=== PATIENT | female | born 1980 | race Caucasian/White ===

== ENCOUNTER 2017-03-03 00:54 | Emergency (ER) | payer OTHER ==
[~2017-03-03] VITALS: Ht 167.6 cm; Wt 56.7 kg
[~2017-03-03 00:54] MED LIST: ACET500; ACETAMINOPHEN500 MG PO; ALBU90OI INH; AMOX500 PO; AZIT200SU PO; AZIT500 PO; Augmentin600 MG/5 M PO; Bactrim Ds Tab1 EACH PO; Bentyl20 MG PO; CALGLU500; CEPH500; CEPH500 PO; CETI10 PO; CLIN150 PO; CODACE30 PO; CYCL10 PO; DIPH50; DOXY100 PO; EPIN.3I; EPIN.3I IM; FLUT110OIA IH; FOLI1; Flomax0.4 MG PO; GABA300T24; GABA400 PO; HYDACE10B PO; HYDACE5; HYDACE5 PO; Hydrocodone-Ap1 EA23 PO; IBUP600 PO; IBUP800 PO; KETO10 PO; LORA.5 PO; LORA2 PO; MEDR10 PO; MULVITA; MULVITMINE PO; Mucinex600 MG PO; OMEP40CA12 PO; ONDA4ODT MM; OSEL75CA PO; OXYACE5T PO; PANT20; PENVK500 PO; PROC10 PO; PROM12.5S; PROM25; PROM25 PO; PSETRI PO; RXOXYACE PO; RXSULTRIDS PO; SERT25; SULTRIDS PO; Ultram50 MG PO; VIT B6; Zofran Odt4 MG SL; Zofran4 MG PO
[2017-03-03 01:55] LABS: Source, Urine Clean Catch
[2017-03-03 01:57] LABS: Bilirubin, Urine Neg (Neg); Blood, Urine 5+ (Neg); Glucose Qualitative, Urine Neg (Neg); Ketones, Urine Neg (Neg); Leukocyte Esterase, Urine 3+ (Neg); Nitrite, Urine Neg (Neg); Protein, Urine 3+ (Neg); Urobilinogen, Urine NORM (Normal)
[2017-03-03 02:01] LABS: Appearance, Urine Cloudy (Clear); Color, Urine Yellow (P-Yellow)
[2017-03-03 02:05] LABS: Bacteria Mod /hpf; Red Blood Cells, Urine 25-50 /hpf (0-2); Squamous Epithelial Cells Rare /hpf (Few); White Blood Cells, Urine TNTC /hpf (0-5)
[2017-03-03] MEDS ORDERED: ALPR.5 PO (02:50)
[2017-03-03 03:42] LABS: BASOPHILS ABSOLUTE AUTO 0.02 K/mm3 (0.00-0.23); BASOPHILS PERCENT AUTO 0 % (0-2); EOSINOPHILS ABSOLUTE AUTO 0.22 K/mm3 (0.00-0.68); EOSINOPHILS PERCENT AUTO 2 % (0-6); Hematocrit 38.7 % (33.0-51.0); IMMATURE GRAN ABSOLUTE AUTO 0.01 K/mm3 (0.00-0.10); IMMATURE GRAN PERCENT AUTO 0 % (0-1); LYMPHOCYTES ABSOLUTE AUTO 2.79 K/mm3 (0.84-5.20); LYMPHOCYTES PERCENT AUTO 24 % (21-46); MONOCYTES PERCENT AUTO 8 % (4-13); Mean Corpuscular HGB 29.3 pg (26.0-34.0); Mean Corpuscular HGB Conc 33.6 g/dL (31.5-36.5); Mean Corpuscular Volume 87 fL (80-100); Mean Platelet Volume 9.7 fL (9.1-12.4); NEUTROPHILS ABSOLUTE AUTO 7.48 K/mm3 (1.96-9.15); NEUTROPHILS PERCENT AUTO 66 % (41-73); Platelet Count 268 K/mm3 (150-400); RDW Coefficient Variation 12.5 % (11.7-14.2); RDW Standard Deviation 40.2 fL (35.1-46.3); Red Blood Cell Count 4.44 M/mm3 (3.80-5.20); White Blood Cell Count 11.42 K/mm3 (4.00-11.30)
[2017-03-03 03:59] LABS: Alanine Aminotransfer (ALT/SGP 22 U/L (12-78); Albumin, Blood 3.3 g/dL (3.4-5.0); Albumin/Globulin Ratio 0.9 (0.8-1.8); Alk Phos 36 U/L (50-136); Anion Gap 6 mmol/L (6-16); Aspartate Aminotrans (AST/SGOT 13 U/L (12-37); Bilirubin, Total 0.2 mg/dL (0.1-1.0); Blood Urea Nitrogen 14 mg/dL (8-24); Bun/Creatinine Ratio 16.9 (12.0-20.0); CO2, Blood 27 mmol/L (21-32); Calcium, Blood 8.3 mg/dL (8.5-10.1); Chloride, Blood 106 mmol/L (98-108); Creatinine, Blood 0.83 mg/dL (0.40-1.00); Globulin, Blood 3.6 g/dL (2.2-4.0); Glomerular Filtration Rate >60 (60-); Glucose, Blood 85 mg/dL (70-99); Sodium, Blood 139 mmol/L (136-145); Total Protein, Blood 6.9 g/dL (6.4-8.2)
== END 2017-03-03 13:40 | disposition home or self-care (01) ==
LOC: ER 00:54
PROVIDERS: Physician Assistant
DX: N13.2 Hydronephrosis with renal and ureteral calculous obstruction (principal); N12 Tubulo-interstitial nephritis, not specified as acute or chronic; I48.91 Unspecified atrial fibrillation; Z88.8 Allergy status to other drugs, medicaments and biological substances; Z88.1 Allergy status to other antibiotic agents; Z79.899 Other long term (current) drug therapy; Z87.442 Personal history of urinary calculi; Z98.51 Tubal ligation status; Z87.891 Personal history of nicotine dependence
CPT/HCPCS: 36415; 74000; 74176; 76770; 80053; 81001; 81025; 83690; 85025; 87077; 87086; 87186; 96361; 96365; 96366; 96375; 96376; 99285; J0696; J1170; J1885; J2405; J2550; J7030

== ENCOUNTER → 2017-05-02 | Outpatient (CLI) | payer OTHER ==
[~2017-05-02] MED LIST changes: +ALPR.5 PO
[2017-05-02 17:15] LABS: Source, Urine Clean Catch
[2017-05-02 17:59] LABS: Appearance, Urine Clear (Clear); Bilirubin, Urine Neg (Neg); Blood, Urine 1+ (Neg); Color, Urine Yellow (P-Yellow); Glucose Qualitative, Urine Neg (Normal); Ketones, Urine Neg (Neg); Leukocyte Esterase, Urine Neg (Neg); Nitrite, Urine Neg (Neg); Protein, Urine Neg (Neg); Urobilinogen, Urine NORM (Normal)
[2017-05-02 18:00] LABS: Bacteria Not Seen /hpf; Mucus Light (0-Heavy); Red Blood Cells, Urine 0-2 /hpf (0-2); Squamous Epithelial Cells Few /hpf (Few); White Blood Cells, Urine 0-2 /hpf (0-5)
== END ==
LOC: LAB EV 17:14 → LAB SHORT 17:14
PROVIDERS: Family Medicine
DX: N39.0 Urinary tract infection, site not specified (principal)
CPT/HCPCS: 81001

== ENCOUNTER → 2020-01-20 | Outpatient (CLI) | payer OTHER ==
[2020-01-21 16:20] LABS: CORONAVIRUS (COVID19) CSH-NRL Negative (Negative)
== END | disposition home or self-care (01) ==
LOC: LAB EV 09:18 → LAB SHORT 09:18
PROVIDERS: Physician Assistant
DX: J06.9 Acute upper respiratory infection, unspecified (principal); Z20.828 Contact with and (suspected) exposure to other viral communicable diseases
CPT/HCPCS: U0003

== ENCOUNTER 2021-08-01 14:17 | Emergency (ER) | payer OTHER ==
[~2021-08-01] VITALS: Ht 167.6 cm; Wt 70.3 kg
[~2021-08-01 14:17] MED LIST changes: +GABA100; +HYDROCODONE BIT
[2021-08-01 15:13] LABS: BASOPHILS ABSOLUTE AUTO 0.04 K/mm3 (0.00-0.23); BASOPHILS PERCENT AUTO 0 % (0-2); EOSINOPHILS ABSOLUTE AUTO 0.19 K/mm3 (0.00-0.68); EOSINOPHILS PERCENT AUTO 2 % (0-6); Hematocrit 45.2 % (33.0-51.0); Hemoglobin 15.1 g/dL (11.5-16.0); IMMATURE GRAN ABSOLUTE AUTO 0.05 K/mm3 (0.00-0.10); IMMATURE GRAN PERCENT AUTO 0 % (0-1); LYMPHOCYTES ABSOLUTE AUTO 5.12 K/mm3 (0.84-5.20); LYMPHOCYTES PERCENT AUTO 46 % (21-46); MONOCYTES ABSOLUTE AUTO 0.69 K/mm3 (0.16-1.47); MONOCYTES PERCENT AUTO 6 % (4-13); Mean Corpuscular HGB 30.8 pg (26.0-34.0); Mean Corpuscular HGB Conc 33.4 g/dL (31.5-36.5); Mean Corpuscular Volume 92 fL (80-100); Mean Platelet Volume 10.4 fL (9.1-12.4); NEUTROPHILS ABSOLUTE AUTO 5.11 K/mm3 (1.96-9.15); NEUTROPHILS PERCENT AUTO 46 % (41-73); Platelet Count 358 K/mm3 (150-400); RDW Coefficient Variation 12.4 % (11.7-14.2); RDW Standard Deviation 41.7 fL (35.1-46.3); Red Blood Cell Count 4.91 M/mm3 (3.80-5.20)
[2021-08-01 15:21] LABS: Albumin, Blood 4.2 g/dL (3.4-5.0); Albumin/Globulin Ratio 1.1 (0.8-1.8); Bilirubin, Total 0.2 mg/dL (0.1-1.0); Bun/Creatinine Ratio 15.8 (12.0-20.0); Creatinine, Blood 0.7 mg/dL (0.40-1.00); Globulin, Blood 3.7 g/dL (2.2-4.0); Magnesium, Blood 2.4 mg/dL (1.6-2.4); Potassium, Blood 4.1 mmol/L (3.5-5.5); Total Protein, Blood 7.9 g/dL (6.4-8.2)
[2021-08-01 16:04] LABS: Source, Urine Clean Catch
[2021-08-01 16:16] LABS: Appearance, Urine Clear (Clear); Bilirubin, Urine Neg (Neg); Blood, Urine 2+ (Neg); Color, Urine Yellow (P-Yellow); Glucose Qualitative, Urine Neg (Neg); Ketones, Urine Neg (Neg); Leukocyte Esterase, Urine Neg (Neg); Nitrite, Urine Neg (Neg); Protein, Urine Neg (Neg); Urobilinogen, Urine NORM (Normal)
[2021-08-01 16:41] LABS: Bacteria Few /hpf; Squamous Epithelial Cells Few /hpf (Few); White Blood Cells, Urine 0-2 /hpf (0-5)
[2021-08-01] MEDS ORDERED: ONDA4ODT MM (20:07)
[2021-08-01] MEDS ORDERED: HYDCOR10 PO (20:07)
== END 2021-08-01 21:09 | disposition home or self-care (01) ==
LOC: ER 14:17
PROVIDERS: Physician Assistant
DX: E27.40 Unspecified adrenocortical insufficiency (principal); Z88.1 Allergy status to other antibiotic agents; Z91.018 Allergy to other foods; F17.200 Nicotine dependence, unspecified, uncomplicated
CPT/HCPCS: 36415; 80053; 81001; 81025; 83735; 85025; A9270; J2405; J7030

== ENCOUNTER → 2022-02-10 | Outpatient (CLI) | payer OTHER ==
[~2022-02-10] MED LIST changes: +B-12 COMPL1000 MCG/2 IM; +FOLI1 PO; -GABA100; +GABA100 PO; +HYDCOR10 PO; +MAGNESIUM OXID500 MG PO; +Norco 10-325 T1 EACH PO; +SUMA25 PO; +THERA-D2000 UNIT PO
[2022-02-10 13:00] LABS: Adenovirus F 40/41 Not Detected (NOT DETECT); Astrovirus Not Detected (NOT DETECT); Campylobacter Sp Not Detected (NOT DETECT); Cryptosporidium Not Detected (NOT DETECT); Cyclospora Cayetanensis Not Detected (NOT DETECT); E. Coli O157 Not Detected (NOT DETECT); Entamoeba Histolytica Not Detected (NOT DETECT); Enteroaggregative E. coli-EAEC Not Detected (NOT DETECT); Enteropathogenic E. coli-EPEC Not Detected (NOT DETECT); Enterotoxigenic E. coli-ETEC Not Detected (NOT DETECT); Giardia Lamblia Not Detected (NOT DETECT); Norovirus GI/GII Not Detected (NOT DETECT); Plesiomonas Shigelloides Not Detected (NOT DETECT); Rotavirus A Not Detected (NOT DETECT); Salmonella Sp Not Detected (NOT DETECT); Sapovirus Not Detected (NOT DETECT); Shiga Toxin-prod E. coli-STEC Not Detected (NOT DETECT); Shigella/Enteroin E. coli-EIEC Not Detected (NOT DETECT); Vibrio Cholerae Not Detected (NOT DETECT); Vibrio Sp Not Detected (NOT DETECT); Yersinia Enterocolitica Not Detected (NOT DETECT)
[2022-02-10 16:02] LABS: Source, Urine Voided
[2022-02-10 18:05] LABS: Bacteria Mod /hpf; Red Blood Cells, Urine 0-2 /hpf (0-2); Squamous Epithelial Cells Rare /hpf (Few); White Blood Cells, Urine 0-2 /hpf (0-5)
== END | disposition home or self-care (01) ==
LOC: LAB 09:48 → LAB SHORT 09:48
PROVIDERS: Physician Assistant
DX: K52.9 Noninfective gastroenteritis and colitis, unspecified (principal); R10.2 Pelvic and perineal pain
CPT/HCPCS: 81015; 83993; 87086; 87507

== ENCOUNTER 2022-04-20 02:08 | Day surgery (SDC) | payer OTHER ==
[2022-04-20] MEDS ORDERED: DELTASONE20 MG PO (07:44)
== END 2022-04-20 10:45 | disposition home or self-care (01) ==
LOC: ATC 02:08
DX: K50.10 Crohn's disease of large intestine without complications (principal); E27.40 Unspecified adrenocortical insufficiency
CPT/HCPCS: 96413; 96415; A9270; J2920; J7050; Q5103

== ENCOUNTER 2022-05-03 00:43 | Day surgery (SDC) | payer OTHER ==
[~2022-05-03] VITALS: Wt 74.8 kg
[~2022-05-03 00:43] MED LIST changes: +DELTASONE20 MG PO
== END 2022-05-03 10:25 | disposition home or self-care (01) ==
LOC: ATC 00:43
DX: K50.10 Crohn's disease of large intestine without complications (principal)
CPT/HCPCS: 96413; 96415; A9270; J7050; Q5103

== ENCOUNTER → 2022-05-22 | Outpatient (CLI) | payer OTHER | END | disposition home or self-care (01) | LOC: LAB 09:53 → LAB SHORT 09:53 | DX: N39.0 Urinary tract infection, site not specified (principal) | CPT/HCPCS: 87086 ==

== ENCOUNTER 2022-06-01 02:55 | Day surgery (SDC) | payer OTHER ==
[~2022-06-01] VITALS: Wt 75.2 kg
== END 2022-06-01 11:56 | disposition home or self-care (01) ==
LOC: ATC 02:55
DX: K50.10 Crohn's disease of large intestine without complications (principal)
CPT/HCPCS: 96413; 96415; A9270; J7050; Q5103

== ENCOUNTER 2022-06-19 00:59 | Day surgery (SDC) | payer OTHER | END 2022-06-19 11:23 | disposition home or self-care (01) | LOC: ATC 00:59 | DX: E27.3 Drug-induced adrenocortical insufficiency (principal); K50.90 Crohn's disease, unspecified, without complications; E04.2 Nontoxic multinodular goiter; D51.0 Vitamin B12 deficiency anemia due to intrinsic factor deficiency | CPT/HCPCS: 80400; 82533; J0834 ==

== ENCOUNTER 2022-09-21 01:02 | Day surgery (SDC) | payer OTHER ==
[2022-09-21 09:00] VITALS: BP 130/85
== END 2022-09-21 11:45 | disposition home or self-care (01) ==
LOC: ATC 01:02
DX: K50.10 Crohn's disease of large intestine without complications (principal); I48.0 Paroxysmal atrial fibrillation; Z88.1 Allergy status to other antibiotic agents; Z79.899 Other long term (current) drug therapy
CPT/HCPCS: 96413; 96415; A9270; J2920; J7050; Q5103

== ENCOUNTER → 2022-11-03 | Outpatient (CLI) | payer OTHER ==
[2022-11-03 11:59] LABS: C DIFFICILE DNA NEGATIVE (Negative)
== END ==
LOC: LAB SHORT 06:30 → LAB 06:30
PROVIDERS: Internal Medicine Gastroenterology
DX: K50.10 Crohn's disease of large intestine without complications (principal)
CPT/HCPCS: 87493

== ENCOUNTER 2022-11-16 01:12 | Day surgery (SDC) | payer OTHER ==
[2022-11-16 08:56] VITALS: BP 117/85
== END 2022-11-16 11:14 | disposition home or self-care (01) ==
LOC: ATC 01:12
DX: K50.10 Crohn's disease of large intestine without complications (principal); Z88.1 Allergy status to other antibiotic agents; E04.2 Nontoxic multinodular goiter; D51.0 Vitamin B12 deficiency anemia due to intrinsic factor deficiency
CPT/HCPCS: 96413; 96415; A9270; J7050; Q5103

== ENCOUNTER 2022-11-23 06:36 | Day surgery (SDC) | payer OTHER ==
[~2022-11-23] VITALS: Ht 167.6 cm; Wt 74.0 kg
[2022-11-23] VITALS (19 sets, daily range): BP systolic 103–124; BP diastolic 54–85
--- NOTE | 2022-11-23 06:50 | NUR ---
PT TO DAY SURGERY FOR LAPAROSCOPIC HYSTERECTOMY. PT HAS NOT EATEN SINCE 2099 AND HAD A COUPLE SIPS OF WATER WITH HER AM MEDICATION. PT CHART REVIEWED, PLAN OF CARE DISUSSED WITH PT.
[2022-11-23] MEDS ORDERED: INFLECTRA100 MG IV (07:22)
--- NOTE | 2022-11-23 12:49 | NUR ---
PT ARRIVED TO UNIT AT APROX 1240 FROM PACU. LAP SITES X'S 4 C/D/I. PT REPORTS PAINFUL AT REST, PREV MEDICATED WITH 2MG DILAUDID IVP. PT GIVEN HEATING PAD AND TOOK OWN GABAPENTIN. BETANCOURT PATENT DRAINING CLEAR/YELLOW URINE.
--- NOTE | 2022-11-23 19:30 | NUR ---
SHIFT SUMMARY PT POD 0 ALEXANDRE PEACOCK. LAP SITES X'S 4 C/D/I. BETANCOURT PATENT, DRAINING CLEAR YELLOW URINE. PAIN WELL MANAGED WITH PO PAIN MEDICATION. TOLERTING REGULAR DIET WITH NO N/V. IVF PER EMAR. PLAN TO DC HOME TOMORROW IF DISCHARGE CRITERIA MET
[2022-11-24 00:32] VITALS: BP 108/60
[2022-11-24 04:49] LABS: BASOPHILS ABSOLUTE AUTO 0.01 K/mm3 (0.00-0.23); BASOPHILS PERCENT AUTO 0 % (0-2); EOSINOPHILS ABSOLUTE AUTO 0.03 K/mm3 (0.00-0.68); EOSINOPHILS PERCENT AUTO 0 % (0-6); Hematocrit 34.3 % (33.0-51.0); Hemoglobin 11.7 g/dL (11.5-16.0); IMMATURE GRAN ABSOLUTE AUTO 0.03 K/mm3 (0.00-0.10); IMMATURE GRAN PERCENT AUTO 0 % (0-1); LYMPHOCYTES ABSOLUTE AUTO 2.79 K/mm3 (0.84-5.20); LYMPHOCYTES PERCENT AUTO 23 % (21-46); MONOCYTES ABSOLUTE AUTO 0.83 K/mm3 (0.16-1.47); MONOCYTES PERCENT AUTO 7 % (4-13); Mean Corpuscular HGB 31.2 pg (26.0-34.0); Mean Corpuscular HGB Conc 34.1 g/dL (31.5-36.5); Mean Corpuscular Volume 92 fL (80-100); Mean Platelet Volume 10.5 fL (9.1-12.4); NEUTROPHILS ABSOLUTE AUTO 8.36 K/mm3 (1.96-9.15); NEUTROPHILS PERCENT AUTO 69 % (41-73); Platelet Count 276 K/mm3 (150-400); RDW Coefficient Variation 11.9 % (11.7-14.2); Red Blood Cell Count 3.75 M/mm3 (3.80-5.20); White Blood Cell Count 12.05 K/mm3 (4.00-11.30)
[2022-11-24 04:52] VITALS: BP 110/62
--- NOTE | 2022-11-24 06:25 | NUR ---
SHIFT SUMMARY POD 1 ROBOTIC LAP HYSTER, 4 LAP SITES C/D/I. PT VERY PAINFUL T/O NIGHT, MEDICATED W/ DILAUDED X3 FOR 9/10 PAIN TO ABD. PT ALSO HX OF CROHNS DISEASE AND ANXIETY, AND TAKES LARGE AMOUNTS OF OXY AND GABAPENTIN AT HOME, PER PT REPORT. PT A&OX4, SPOUSE AT BEDSIDE. SERAFIN REMOVED THIS A.M. W/ LARGE AMT OF LIGHT YELLOW OUTPUT. PT AMBULATED LAST NIGHT IN HALLWAY TO WINDOW W FWW/ SBA AND TOLERATED WELL. NO ACUTE CHANGES THIS SHIFT. PT AWAITING DISCHARGE TO HOME TODAY. CALL LIGHT W/IN REACH.
[2022-11-24 07:14] VITALS: BP 110/70
--- NOTE | 2022-11-24 10:56 | NUR ---
DISCHARGE NOTE: PATIENT AND PATIENTS WERE EDUCATED ON DISCHARGE INSTRUCTIONS. BOTH VERBALIZED UNDERSTANDING AND HAD NO FURTHER QUESTIONS AT THIS TIME. HARD PERSCRIPTIONS WERE ALREADY FILLED. BOTH IVS WERE TAKEN OUT AND WNL. PATIENT IS TOLERATING PO INTAKE AND IS VOIDING. ABD HAS X4 LAP SITES WITH WOUND GLUE THAT ARE C/D/I. DENIES NAUSEA OR VOMITING. PATIENT IS DRESSED AND HAS PERSONAL ITEMS IN THE ROOM GATHERED. PATIENT REFUSED TO BE WHEELCHAIRED OUT AND IS WALKING OUT WITH TO HIS CAR TO BE TAKEN HOME.
== END 2022-11-24 10:40 | disposition home or self-care (01) ==
LOC: ORSCMMR 06:36 → ORD 08:00 → ORSCMMR 08:00 → SURS 12:29 → ORSCMMR 12:30 → SURS 11-24 10:40 → ORSCMMR 11-24 10:40
PROVIDERS: Obstetrics & Gynecology
PROC: 8E0W4CZ Robotic Assisted Procedure of Trunk Region, Percutaneous Endoscopic Approach (ICD-10-PCS; principal; 2022-11-23 08:00)
PROC: 0U5F4ZZ Destruction of Cul-de-sac, Percutaneous Endoscopic Approach (ICD-10-PCS; principal; 2022-11-23 08:00)
PROC: 0UT9FZZ Resection of Uterus, Via Natural or Artificial Opening With Percutaneous Endoscopic Assistance (ICD-10-PCS; principal; 2022-11-23 08:00)
PROC: 0UT7FZZ Resection of Bilateral Fallopian Tubes, Via Natural or Artificial Opening With Percutaneous Endoscopic Assistance (ICD-10-PCS; principal; 2022-11-23 08:00)
DX: N92.1 Excessive and frequent menstruation with irregular cycle (principal); N80.00 Endometriosis of the uterus, unspecified; O34.22 Maternal care for cesarean scar defect (isthmocele); D25.1 Intramural leiomyoma of uterus; N94.6 Dysmenorrhea, unspecified; N80.03 Adenomyosis of the uterus; N80.203 Endometriosis of bilateral fallopian tubes, unspecified depth
CPT/HCPCS: 36415; 85025; 86850; 86900; 86901; 88305; 88307; A9270; J0690; J1100; J1170; J1885; J2250; J2371; J2405; J2704; J3010; J7120

== ENCOUNTER 2023-01-11 05:09 | Day surgery (SDC) | payer OTHER ==
[~2023-01-11 05:09] MED LIST changes: +INFLECTRA100 MG IV
[2023-01-11 09:07] VITALS: BP 137/87
== END 2023-01-11 11:58 | disposition home or self-care (01) ==
LOC: ATC 05:09
DX: K50.10 Crohn's disease of large intestine without complications (principal)
CPT/HCPCS: 96413; 96415; A9270; J7050; Q5103

== ENCOUNTER 2023-01-13 11:57 | Emergency (ER) | payer OTHER ==
[~2023-01-13] VITALS: Ht 167.6 cm; Wt 70.3 kg
[2023-01-13 12:19] VITALS: BP 146/94
[2023-01-13 12:59] LABS: Source, Urine Clean Catch
[2023-01-13 13:04] LABS: Bilirubin, Urine Neg (Neg); Blood, Urine 2+ (Neg); Color, Urine Yellow (P-Yellow); Glucose Qualitative, Urine Neg (Neg); Ketones, Urine Neg (Neg); Leukocyte Esterase, Urine Neg (Neg); Nitrite, Urine Neg (Neg); Protein, Urine Neg (Neg); Urobilinogen, Urine NORM (Normal)
[2023-01-13 13:24] LABS: BASOPHILS ABSOLUTE AUTO 0.06 K/mm3 (0.00-0.23); BASOPHILS PERCENT AUTO 1 % (0-2); EOSINOPHILS ABSOLUTE AUTO 0.33 K/mm3 (0.00-0.68); EOSINOPHILS PERCENT AUTO 4 % (0-6); Hematocrit 45.2 % (33.0-51.0); IMMATURE GRAN ABSOLUTE AUTO 0.02 K/mm3 (0.00-0.10); IMMATURE GRAN PERCENT AUTO 0 % (0-1); LYMPHOCYTES ABSOLUTE AUTO 4.08 K/mm3 (0.84-5.20); LYMPHOCYTES PERCENT AUTO 47 % (21-46); MONOCYTES ABSOLUTE AUTO 0.58 K/mm3 (0.16-1.47); MONOCYTES PERCENT AUTO 7 % (4-13); Mean Corpuscular HGB 30.2 pg (26.0-34.0); Mean Corpuscular HGB Conc 33.2 g/dL (31.5-36.5); Mean Corpuscular Volume 91 fL (80-100); Mean Platelet Volume 10.4 fL (9.1-12.4); NEUTROPHILS ABSOLUTE AUTO 3.62 K/mm3 (1.96-9.15); NEUTROPHILS PERCENT AUTO 42 % (41-73); Platelet Count 356 K/mm3 (150-400); RDW Coefficient Variation 12.1 % (11.7-14.2); RDW Standard Deviation 40.6 fL (35.1-46.3); Red Blood Cell Count 4.97 M/mm3 (3.80-5.20); White Blood Cell Count 8.69 K/mm3 (4.00-11.30)
[2023-01-13 13:33] LABS: Albumin, Blood 4.3 g/dL (3.4-5.0); Albumin/Globulin Ratio 1.1 (0.8-1.8); Bilirubin, Total 0.3 mg/dL (0.1-1.0); Bun/Creatinine Ratio 9.1 (12.0-20.0); Calcium, Blood 9.6 mg/dL (8.5-10.1); Creatinine, Blood 0.88 mg/dL (0.40-1.00); Globulin, Blood 3.9 g/dL (2.2-4.0); Potassium, Blood 3.7 mmol/L (3.5-5.5); Total Protein, Blood 8.2 g/dL (6.4-8.2)
[2023-01-13 13:45] LABS: Appearance, Urine Hazy (Clear)
[2023-01-13 13:46] LABS: Amorphous Mod (0-Heavy); Bacteria Mod /hpf; Mucus Mod (0-Heavy); Squamous Epithelial Cells Few /hpf (Few); White Blood Cells, Urine 0-2 /hpf (0-5)
[2023-01-13 14:12] LABS: Influenza A, PCR NEGATIVE (NEGATIVE); Influenza B, PCR NEGATIVE (NEGATIVE); Resp Syncytial Virus, PCR NEGATIVE (NEGATIVE); SARS-Cov-2 (COVID-19) PCR, MMC NEGATIVE (NEGATIVE)
[2023-01-14 23:08] LABS: CHLAMYDIA TRACHOMATIS, NAA Negative (Negative)
== END 2023-01-13 14:14 | disposition home or self-care (01) ==
LOC: ER 11:57
PROVIDERS: Emergency Medicine
DX: B34.9 Viral infection, unspecified (principal); Z88.8 Allergy status to other drugs, medicaments and biological substances; Z88.1 Allergy status to other antibiotic agents; Z88.6 Allergy status to analgesic agent; Z79.899 Other long term (current) drug therapy; I48.91 Unspecified atrial fibrillation; G43.909 Migraine, unspecified, not intractable, without status migrainosus; Z87.891 Personal history of nicotine dependence
CPT/HCPCS: 0241U; 71046; 80053; 81001; 85025; 87491; 87591; 96361; 96374; 99283-25; J2405; J7030

== ENCOUNTER → 2023-02-07 | Outpatient (CLI) | payer OTHER ==
[2023-02-07 16:20] LABS: BASOPHILS ABSOLUTE AUTO 0.03 K/mm3 (0.00-0.23); BASOPHILS PERCENT AUTO 0 % (0-2); EOSINOPHILS ABSOLUTE AUTO 0.01 K/mm3 (0.00-0.68); EOSINOPHILS PERCENT AUTO 0 % (0-6); Hemoglobin 15.9 g/dL (11.5-16.0); IMMATURE GRAN ABSOLUTE AUTO 0.12 K/mm3 (0.00-0.10); IMMATURE GRAN PERCENT AUTO 1 % (0-1); LYMPHOCYTES ABSOLUTE AUTO 3.61 K/mm3 (0.84-5.20); LYMPHOCYTES PERCENT AUTO 23 % (21-46); MONOCYTES PERCENT AUTO 5 % (4-13); Mean Corpuscular HGB 31.2 pg (26.0-34.0); Mean Corpuscular HGB Conc 34.6 g/dL (31.5-36.5); Mean Corpuscular Volume 90 fL (80-100); Mean Platelet Volume 10.1 fL (9.1-12.4); NEUTROPHILS ABSOLUTE AUTO 11.17 K/mm3 (1.96-9.15); NEUTROPHILS PERCENT AUTO 71 % (41-73); Platelet Count 354 K/mm3 (150-400); RDW Coefficient Variation 12.5 % (11.7-14.2); RDW Standard Deviation 41.1 fL (35.1-46.3); White Blood Cell Count 15.74 K/mm3 (4.00-11.30)
== END ==
LOC: LAB 16:17 → LAB SHORT 16:17
PROVIDERS: Physician Assistant
DX: R10.9 Unspecified abdominal pain (principal)
CPT/HCPCS: 85025

== ENCOUNTER → 2023-10-24 | Outpatient (CLI) | payer OTHER ==
[2023-10-25 09:31] LABS: Candida Group, PCR NOT DETECTED (NOT DETECT)
[2023-10-25 09:37] LABS: Bacterial Vaginosis PCR Positive (NEGATIVE); Candida glabrata-krusei, PCR DETECTED (NOT DETECT)
[2023-10-26 17:07] LABS: APTIMA MEDIA TYPE Urine; C. TRACHOMATIS BY TMA Negative (Negative); N. GONORRHOEAE BY TMA Negative (Negative); SPECIMEN SOURCE Urine
== END | disposition home or self-care (01) ==
LOC: LAB 15:27 → LAB SHORT 15:27
PROVIDERS: Physician Assistant
DX: Z11.3 Encounter for screening for infections with a predominantly sexual mode of transmission (principal); N89.8 Other specified noninflammatory disorders of vagina; R30.0 Dysuria
CPT/HCPCS: 87086; 87481; 87491; 87591; 87661; 87801

== ENCOUNTER 2024-02-07 05:12 | Inpatient (IN) | payer OTHER ==
[~2024-02-07] VITALS: Ht 167.6 cm; Wt 70.5 kg
[2024-02-07] MEDS ORDERED: Metoclopramide HCl 5MG / ML 2ML Vial IV ONE (05:30)
[2024-02-07 05:45] LABS: BASOPHILS ABSOLUTE AUTO 0.05 K/mm3 (0.00-0.23); BASOPHILS PERCENT AUTO 0 % (0-2); EOSINOPHILS ABSOLUTE AUTO 0.07 K/mm3 (0.00-0.68); EOSINOPHILS PERCENT AUTO 0 % (0-6); Hematocrit 46.9 % (33.0-51.0); Hemoglobin 16.2 g/dL (11.5-16.0); IMMATURE GRAN PERCENT AUTO 1 % (0-1); LYMPHOCYTES PERCENT AUTO 13 % (21-46); MONOCYTES ABSOLUTE AUTO 0.67 K/mm3 (0.16-1.47); MONOCYTES PERCENT AUTO 3 % (4-13); Mean Corpuscular HGB 30.9 pg (26.0-34.0); Mean Corpuscular HGB Conc 34.5 g/dL (31.5-36.5); Mean Corpuscular Volume 90 fL (80-100); Mean Platelet Volume 10.4 fL (9.1-12.4); NEUTROPHILS ABSOLUTE AUTO 17.86 K/mm3 (1.96-9.15); NEUTROPHILS PERCENT AUTO 83 % (41-73); Platelet Count 332 K/mm3 (150-400); RDW Coefficient Variation 12.1 % (11.7-14.2); RDW Standard Deviation 39.8 fL (35.1-46.3); Red Blood Cell Count 5.24 M/mm3 (3.80-5.20); White Blood Cell Count 21.45 K/mm3 (4.00-11.30)
[2024-02-07 05:56] LABS: Source, Urine Clean Catch
[2024-02-07 05:58] LABS: Bilirubin, Urine Neg (Neg); Blood, Urine 3+ (Neg); Glucose Qualitative, Urine Neg (Neg); Ketones, Urine 1+ (Neg); Leukocyte Esterase, Urine 1+ (Neg); Nitrite, Urine Neg (Neg); Protein, Urine 1+ (Neg); Urobilinogen, Urine 1+ (Normal)
[2024-02-07 06:01] LABS: Appearance, Urine Clear (Clear); Color, Urine Amber (P-Yellow)
[2024-02-07 06:04] LABS: Amorphous Light (0-Heavy); Bacteria Not Seen /hpf; Squamous Epithelial Cells Rare /hpf (Few); White Blood Cells, Urine 0-2 /hpf (0-5)
[2024-02-07] MEDS ORDERED: Lactated Ringer's 1,000 ML IV ONE (06:35)
[2024-02-07] MEDS ORDERED: HYDROmorphone HCl/Pf 1MG SYR IV ONE ×3 (06:35→09:40)
[2024-02-07 06:36] LABS: Albumin, Blood 4.1 g/dL (3.4-5.0); Albumin/Globulin Ratio 1.2 (0.8-1.8); Bilirubin, Total 0.3 mg/dL (0.1-1.0); Bun/Creatinine Ratio 20.5 (12.0-20.0); Calcium, Blood 9.4 mg/dL (8.5-10.1); Creatinine, Blood 0.83 mg/dL (0.40-1.00); Globulin, Blood 3.3 g/dL (2.2-4.0); Potassium, Blood 4.5 mmol/L (3.5-5.5); Total Protein, Blood 7.4 g/dL (6.4-8.2)
[2024-02-07] MEDS ORDERED: Gabapentin 300 MG Cap PO ONE (09:40)
[2024-02-07] MEDS ORDERED: NS 1,000 ML IV SCH (10:10)
[2024-02-07] MEDS ORDERED: HYDROmorphone HCl/Pf 1MG SYR IV PRN (10:15)
[2024-02-07] MEDS ORDERED: FLU VACC TS2024-25(6MOS UP)/PF 45 MCG/0.5 ML SYRINGE IM PRN (10:15)
[2024-02-07] MEDS ORDERED: Magnesium Hydroxide Conc 10 ML UDC PO PRN (10:15)
[2024-02-07] MEDS ORDERED: Ondansetron HCl 2 MG / ML 2ML Vial IV PRN (10:15)
[2024-02-07] MEDS ORDERED: MetroNIDAZOLE 500MG/NS 100 ml 100 ML IV SCH (10:18)
[2024-02-07] MEDS ORDERED: CefTRIAXone Sodium 1,000 MG in NS 100 ML IV SCH (10:18)
[2024-02-07] MEDS ORDERED: MethylPREDNISolone Sod Succ 125 MG Vial IV SCH (11:00)
[2024-02-07 11:55] VITALS: BP 126/91
[2024-02-07] MEDS ORDERED: HUMIRA PEN40 MG/0.2 SC (12:11)
[2024-02-07] MEDS ORDERED: Bisacodyl 10 MG Supp PR PRN (13:00)
[2024-02-07] MEDS ORDERED: Polyethylene Glycol 3350 17 gm PO PRN (13:00)
[2024-02-07] MEDS ORDERED: Sod Phosphate/Sod Biphosphate 132 ML BTL PR ONE (13:20)
[2024-02-07] MEDS ORDERED: HYDROcodone 5-APAP 325 TAB PO PRN (14:35)
[2024-02-07 15:36] VITALS: BP 132/85
[2024-02-07] MEDS ORDERED: Gabapentin 300 MG Cap PO SCH (17:00)
[2024-02-07] MEDS ORDERED: Mineral Oil 133 ML Enema PR ONE (18:50)
--- NOTE | 2024-02-07 19:05 | NUR ---
CALLED DR AGUDELO SHE IS AWARE THE PT HAD A LARGE STOOL AFTER THE FIRST FLEETS ENEMA. NO FURTHER STOOLS WERE PASSED AFTER THAT. SHE WANTS THE SECOND ENEMA GIVEN NOW. SUGESTED THE USE OF REGLAN FOR THE PT, SHE AGREES THIS MIGHT BE A GOOD IDEA BUT LEFT THAT UP TO THE HOSPITALIST. CALLED DR RICHARD AND DID NOT REACH HIM. WILL PASS ON TO NIGHT RN TO CALL NIGHT HOSPITALIST FOR REGLAN REQUEST.
--- NOTE | 2024-02-07 19:25 | NUR ---
DR RICHARD CALLED BACK ORDER RECIEVED FOR IV REGLAN
[2024-02-07] MEDS ORDERED: Metoclopramide HCl 5MG / ML 2ML Vial IV PRN (19:30)
--- NOTE | 2024-02-07 19:34 | NUR ---
SHIFT SUMMARY- PT ALERT AND ORIENTED, SHE WALKS DOUBLED OVER, D/T ABD DISCOMFORT. PT IS A 1P SBA TO THE BATHROOM. SHE HAD A LARGE LIQUID/ ROCK HARD PIECES STOOL AFTER THE ENEMA THIS AFTERNOON. PT HAD NORCO AND GABAPENTIN AND HER PAIN MED REQUIREMENT DROPPED. SHE WAS VISITING WITH FAMILY AND HER PAIN GOT OUT OF CONTROL A BIT AT THE END OF THE DAY. PT REQUESTED PAIN MEDICATION PRIOR TO THE SECOND ENEMA ORDERED BY DR AGUDELO THIS EVENING (ORDER CLARIFIED) PT IS RECIEVEING THAT AT THIS TIME WITH THE NIGHT RN. PT IS IN BED, CALL LIGHT IN REACH, SHE CALLS APPROPRIATELY. PAIN IS RATED AT 7/10 AT THIS TIME. BEDSIDE REPORT COMPLETED WITH NIGHT RN MARNI.
[2024-02-07 19:40] VITALS: BP 108/71
[2024-02-07] MEDS ORDERED: Docusate Sodium 100 MG Cap PO SCH (21:00)
--- NOTE | 2024-02-08 01:02 | NUR ---
NEW T-ORDER FROM : GABAPENTIN PO 300MG ONCE. ENTERED TO [employer], SEE EMAR. NO ADDITIONAL NEW ORDERS AT THIS TIME.
[2024-02-08] MEDS ORDERED: Gabapentin 300 MG Cap PO ONE (01:05)
--- NOTE | 2024-02-08 03:51 | NUR ---
SHIFT SUMMARY PT'S SO SPENDING THE NIGHT IN THE HOSPITAL ROOM. PT IS PLEASANT, COOPERATIVE WITH CARE, AND ABLE TO MAKE HER NEEDS KNOWN. PT C/O 7-10/19 ABDOMINAL PAIN, PT LAYING IN BED IN A POSITION. MEDICATED WITH PRN 1MG HYDROMORPHINE X2 AND PRN 10MG PO NORCO 10MG ONCE DURING THIS SHIFT WITH GOOD EFFECTIVNESS. 2ND ENEMA ADMINISTERED @SHIFT CHANGE-NO BM RESULTS DURING THIS SHIFT. PT C/O NAUSEA, PRN IV REGLAN REQUESTED PER PT, ADMINISTERED ORDERED. NS INFUSING ORDERED. PT REQUESTED SOME CHICKEN BROTH, NO OTHER PO INTAKE DURING THE NIGHT HRS. PT CONTINUES ON CLEAR LIQUID DIET. PT IS INDEPENDENT WITHIN THE HOSPITAL ROOM. PT VOIDING W/O ANY COMPLAINTS. NO ACUTE EVENTS DURING THIS SHIFT. BED AT THE LOWEST POSITION, CALL LIGHT W/I REACH.
[2024-02-08 04:48] VITALS: BP 115/62
[2024-02-08 06:05] LABS: Hematocrit 38.3 % (33.0-51.0); Hemoglobin 12.9 g/dL (11.5-16.0); Mean Corpuscular HGB 30.6 pg (26.0-34.0); Mean Corpuscular HGB Conc 33.7 g/dL (31.5-36.5); Mean Corpuscular Volume 91 fL (80-100); Mean Platelet Volume 10.7 fL (9.1-12.4); Platelet Count 263 K/mm3 (150-400); RDW Coefficient Variation 11.9 % (11.7-14.2); RDW Standard Deviation 39.8 fL (35.1-46.3); Red Blood Cell Count 4.22 M/mm3 (3.80-5.20); White Blood Cell Count 18.55 K/mm3 (4.00-11.30)
[2024-02-08] MEDS ORDERED: Lactulose 200 GM/300 ML Enema 300ML BTL PR ONE (06:35)
[2024-02-08 06:38] LABS: Bun/Creatinine Ratio 9.2 (12.0-20.0); Calcium, Blood 8.4 mg/dL (8.5-10.1); Creatinine, Blood 0.76 mg/dL (0.40-1.00); Potassium, Blood 4.2 mmol/L (3.5-5.5)
[2024-02-08 07:19] VITALS: BP 130/91
[2024-02-08] MEDS ORDERED: Enoxaparin 40 MG/0.4 ML SYR SC SCH (09:00)
[2024-02-08] MEDS ORDERED: Cholecalciferol 1000 Unit Tablet (=25MCG) PO SCH (09:00)
[2024-02-08] MEDS ORDERED: SUMAtriptan Succinate 25 MG Tab PO PRN (09:00)
[2024-02-08] MEDS ORDERED: Magnesium Hydroxide Conc 10 ML UDC PO SCH (14:00)
[2024-02-08 15:13] VITALS: BP 128/78
[2024-02-08 16:16] LABS: C-REACTIVE PROTEIN, EXT RANGE 1.83 mg/dL (0.000-0.300)
[2024-02-08 16:35] LABS: C-Reactive Protein, High Sens. 16.3 mg/dL (0.000-3.000)
[2024-02-08] MEDS ORDERED: NS 250 ML IV PRN (17:40)
--- NOTE | 2024-02-08 18:50 | NUR ---
SHIFT SUMMARY MS HARDEN HAD 3 SMALL STOOLS TODAY. SOME BROWN LIQUID STOOL AND SOME HARD SMALL STOOLS. NAUSEA EPISODE THIS AM, GIVEN ZOFRAN AND NO C/O NAUSEA SINCE. PAIN MANAGED WITH NORCO AND DILAUDID, PAIN 5-11/19. UP INDEPENDENTLY TO THE BATHROOM WITH STEADY GAIT. BED LOW, CALL LIGHT IN REACH.
[2024-02-08 19:38] VITALS: BP 126/81
[2024-02-08] MEDS ORDERED: Polyethylene Glycol 3350 17 gm PO SCH (21:00)
--- NOTE | 2024-02-09 04:21 | NUR ---
Pt here for abdominal pain, A&O x4, independent with ADL's and BR. voids without issue, stool little to non exsistent, small loose amount sent to lab. Pt having a significant amt of cramping and passing quite a bit of flatus. pain medicated with hydromorphone IVP. GI to consult, no nausea this shift. VS WNL. will continue with bowel meds. remains on clear liquid diet.
[2024-02-09 05:27] VITALS: BP 121/74
[2024-02-09 08:01] VITALS: BP 131/89
[2024-02-09] MEDS ORDERED: Sod Phosphate/Sod Biphosphate 132 ML BTL PR ONE (08:20)
[2024-02-09] MEDS ORDERED: Lactulose 20 GM/30 ML UDC PO SCH ×2 (09:48→13:00)
[2024-02-09] MEDS ORDERED: ONDA4ODT MM (13:53)
--- NOTE | 2024-02-09 14:46 | NUR ---
MD GALICIA MS HARDEN IS HAVING SHARP 8/10 RUQ ABDOMINAL PAIN THAT IS SHARP AND DESCRIBED STABBING PAIN. PAIN IS NOT HELPED WITH IV DILAUDID. DR RICHARD NOTIFOED AND HE IS PUTTING IN AN ORDER FOR CT SCAN.
[2024-02-09] MEDS ORDERED: NS 1,000 ML IV SCH (15:00)
[2024-02-09 15:26] VITALS: BP 126/96
--- NOTE | 2024-02-09 16:44 | NUR ---
[address] VIA WHEELCHAIR
[2024-02-09] MEDS ORDERED: Peg/Electrolytes 4,000 ML BTL PO ONE (18:10)
--- NOTE | 2024-02-09 18:12 | NUR ---
SHIFT SUMMARY MS HARDEN HAS HAD MULTIPLE EPISODES OF SMALL LIQUID BROWN STOOL TODAY. SHE HAS HAD SHARP STABBING RUQ ABDOMINAL PAIN. SHE WAS ENCOURAGED TO AMBULATE AND WALKED IN THE HALLS ONCE. IVF RESTARTED AT 125CC/HR. ABDOMINAL CT SCAN DONE THIS AFTERNOON. TELEPHONE ORDER FROM DR RICHARD FOR GOLITELY MS HARDEN SAID SHE WANTS FURTHER LAXATIVE. SHE WAS EDUCATED THAT SHE DOES NOT NEED TO FINISH THE CONTAINER IF SHE HAS GOOD RESULTS. SHE HAS ALSO HAD FLEETS ENEMA, MIRILAX, MOM AND PO LACTULOSE DOSES. C/O NAUSEA THIS AM AND AGAIN NOW, HELPED WITH ZOFRAN. REQUESTING DILAUDID FOR PAIN RELIEF. BED LOW, CALL LIGHT IN REACH.
[2024-02-09 19:36] VITALS: BP 123/83
--- NOTE | 2024-02-10 04:36 | NUR ---
SHIFT SUMMARY PATIENT IS ALERT AND ORIENTED. PATIENT HAS HAD NO ACUTE EVENTS THIS SHIFT. VITAL SIGNS REVIEWED.PATIENT HAS BEEN IND THIS SHIFT. PATIENT HAS BEEN WORKING ON HER GO LIGHTLY THIS SHIFT. PATIENT HAS BEEN IN PAIN AND MEDICATED PER EMAR. PATIENT HAS NOT HAD ANY COMPLAINTS OF NAUSEA, SOB OR VOMITTING THIS SHIFT. PATIENT HAS NOT HAD SUBSTANTIAL BM THIS SHIFT PER PATIENT. BED IN LOCKED NAD LOWEST POSITION. CALL LIGHT IN PLACE. WILL MONITOR UNTIL SHIFT CHANGE.
[2024-02-10 05:30] VITALS: BP 105/66
[2024-02-10 07:36] VITALS: BP 130/83
[2024-02-10 16:14] VITALS: BP 138/89
--- NOTE | 2024-02-10 16:34 | NUR ---
RN NOTE MS HARDEN HAS AMBULATED IN THE HALLS AND TAKEN A SHOWER TODAY. C/O NAUSEA THIS AM, BUT DENIES NAUSEA SINCE ZOFRAN TOOK EFFECT. SHE HAS CUT BACK ON PAIN MEDICATIONS TODAY, STILL C/O RUQ AND GENERALISED ABDOMINAL PAIN. FREQUENT TRIPS TO THE BATHROOM WITH YELLOW/CLEAR SMALL LIQUID OUTPUT RECTALLY. ABDOMINAL XRAY DONE. MS HARDEN IS ANXIOUS TO BE DISCHARGED HOME, SHE REQUESTED AND HAD HER PIV REMOVED. DR HERRERA HAS SEEN PT/FAMILY TODAY AND HAS BEEN NOTIFIED OF XRAY RESULTS. CALL LIGHT IN REACH, USED APPROPRIATELY.
[2024-02-10] MEDS ORDERED: MIRALAX1714 PO (17:13)
--- NOTE | 2024-02-10 17:32 | NUR ---
DISCHARGED HOME AT 1723. AMBULATED OUT. GIVEN WRITTEN AND VERBAL DISCHARGE INSTRUCTIONS BY ÁNGEL MEJIA RN. SHE SAW DR HERRERA AGAIN BEFORE DISCHARGE TO ANSWER ANY FURTHER QUESTIONS/CONCERNS.
[2024-02-11] MEDS ORDERED: Cyanocobalamin 1000 MCG/ML 1ML Vial IM SCH (09:00)
[2024-02-12] MEDS ORDERED: ADALIMUMAB 40 MG/0.8 ML SC SCH (09:00)
[2024-02-12 20:37] LABS: CALPROTECTIN,FECAL 53 ug/g (<=49)
== END 2024-02-10 18:17 | disposition home or self-care (01) | DRG 389 ==
LOC: ER 05:12 → MEDS 10:10 → ENPENDDIS 02-09 15:13 → MEDS 02-10 18:17
PROVIDERS: Emergency Medicine; Internal Medicine Gastroenterology; ADMIT Internal Medicine
DX: K56.41 Fecal impaction (principal); K50.90 Crohn's disease, unspecified, without complications; R65.10 Systemic inflammatory response syndrome (SIRS) of non-infectious origin without acute organ dysfunction; Q79.60 Ehlers-Danlos syndrome, unspecified; F17.210 Nicotine dependence, cigarettes, uncomplicated; D64.9 Anemia, unspecified; D72.829 Elevated white blood cell count, unspecified; I48.0 Paroxysmal atrial fibrillation; M79.7 Fibromyalgia; G43.909 Migraine, unspecified, not intractable, without status migrainosus; Z88.1 Allergy status to other antibiotic agents; Z88.8 Allergy status to other drugs, medicaments and biological substances; Z98.51 Tubal ligation status; Z90.710 Acquired absence of both cervix and uterus; Z98.890 Other specified postprocedural states; Z79.899 Other long term (current) drug therapy; Z87.440 Personal history of urinary (tract) infections; Z87.19 Personal history of other diseases of the digestive system; Z90.722 Acquired absence of ovaries, bilateral; Z90.79 Acquired absence of other genital organ(s)
CPT/HCPCS: 36415; 74018; 74177; 80048; 80053; 81001; 83605; 83690; 83993; 85025; 85027; 86140; 86141; 87040; 93005; 93010; 96374-59; 96375; 96376; 99285-25; A9270; G0378; J0696; J1171; J1650; J2405; J2765; J2919; J7030; J7120; Q9967

== ENCOUNTER → 2024-06-26 | Outpatient (CLI) | payer OTHER ==
[~2024-06-26] MED LIST changes: +HUMIRA PEN40 MG/0.2 SC; +MIRALAX1714 PO
== END ==
LOC: LAB SHORT 11:14 → LAB 11:14
DX: N39.0 Urinary tract infection, site not specified (principal)
CPT/HCPCS: 87086

== ENCOUNTER → 2024-07-09 | Outpatient (CLI) | payer OTHER | END | disposition home or self-care (01) | LOC: LAB SHORT 10:13 → LAB 10:13 | DX: Z72.51 High risk heterosexual behavior (principal) ==

== ENCOUNTER 2024-11-29 23:05 | Emergency (ER) | payer OTHER ==
[~2024-11-29] VITALS: Ht 167.6 cm; Wt 70.3 kg
[2024-11-29] MEDS ORDERED: Ondansetron HCl 2 MG / ML 2ML Vial IV ONE (23:35)
[2024-11-29 23:46] LABS: Source, Urine Clean Catch
[2024-11-29 23:51] LABS: BASOPHILS ABSOLUTE AUTO 0.05 K/mm3 (0.00-0.23); BASOPHILS PERCENT AUTO 1 % (0-2); EOSINOPHILS ABSOLUTE AUTO 0.16 K/mm3 (0.00-0.68); EOSINOPHILS PERCENT AUTO 2 % (0-6); Hematocrit 40.7 % (33.0-51.0); Hemoglobin 14.0 g/dL (11.5-16.0); IMMATURE GRAN ABSOLUTE AUTO 0.02 K/mm3 (0.00-0.10); IMMATURE GRAN PERCENT AUTO 0 % (0-1); LYMPHOCYTES ABSOLUTE AUTO 3.71 K/mm3 (0.84-5.20); LYMPHOCYTES PERCENT AUTO 43 % (21-46); MONOCYTES ABSOLUTE AUTO 0.57 K/mm3 (0.16-1.47); MONOCYTES PERCENT AUTO 7 % (4-13); Mean Corpuscular HGB Conc 34.4 g/dL (31.5-36.5); Mean Corpuscular Volume 91 fL (80-100); NEUTROPHILS ABSOLUTE AUTO 4.06 K/mm3 (1.96-9.15); NEUTROPHILS PERCENT AUTO 47 % (41-73); NRBC ABSOLUTE 0.00 K/mm3 (0.00-0.02); NRBC Auto 0.0 /100 WBC (0.0-0.2); Platelet Count 310 K/mm3 (150-400); RDW Coefficient Variation 12.0 % (11.7-14.2); RDW Standard Deviation 39.7 fL (35.1-46.3)
[2024-11-30 00:07] LABS: Bilirubin, Urine Neg (Neg); Glucose Qualitative, Urine Neg (Neg); Ketones, Urine Neg (Neg); Leukocyte Esterase, Urine Neg (Neg); Protein, Urine 1+ (Neg); Specific Gravity, Urine 1.010 (1.003-1.022); Urobilinogen, Urine NORM (Normal)
[2024-11-30 00:12] LABS: Alanine Aminotransfer (ALT/SGP 25 U/L (12-78); Albumin, Blood 3.8 g/dL (3.4-5.0); Albumin/Globulin Ratio 1.2 (0.8-1.8); Anion Gap 7 mmol/L (3-11); Aspartate Aminotrans (AST/SGOT 20 U/L (12-37); Bilirubin, Total 0.3 mg/dL (0.1-1.0); Blood Urea Nitrogen 11 mg/dL (8-24); C-REACTIVE PROTEIN, EXT RANGE <0.290 mg/dL (0.000-0.300); CO2, Blood 24 mmol/L (21-32); Calcium, Blood 8.4 mg/dL (8.5-10.1); Chloride, Blood 111 mmol/L (98-108); Color, Urine Yellow (P-Yellow); Creatinine, Blood 0.89 mg/dL (0.40-1.00); Globulin, Blood 3.1 g/dL (2.2-4.0); Glucose, Blood 99 mg/dL (70-99); Potassium, Blood 4.2 mmol/L (3.5-5.5); Sodium, Blood 138 mmol/L (136-145); Total Protein, Blood 6.9 g/dL (6.4-8.2)
[2024-11-30 00:13] LABS: Red Blood Cells, Urine 0-2 /hpf (0-2); White Blood Cells, Urine 0-2 /hpf (0-5)
[2024-11-30] MEDS ORDERED: Ondansetron HCl 2 MG / ML 2ML Vial IV ONE (02:25)
[2024-11-30 02:59] LABS: Influenza A, PCR NEGATIVE (NEGATIVE); Influenza B, PCR NEGATIVE (NEGATIVE); Resp Syncytial Virus, PCR NEGATIVE (NEGATIVE); SARS-Cov-2 (COVID-19) PCR, MMC NEGATIVE (NEGATIVE)
[2024-11-30] MEDS ORDERED: DELTASONE20 MG PO (04:02)
[2024-11-30 05:30] VITALS: BP 108/79
== END 2024-11-30 05:30 | disposition home or self-care (01) ==
LOC: ER 23:05
PROVIDERS: Emergency Medicine; Student in an Organized Health Care Education/Training Program
DX: K50.90 Crohn's disease, unspecified, without complications (principal); M25.50 Pain in unspecified joint; I48.91 Unspecified atrial fibrillation; Z87.891 Personal history of nicotine dependence; Z79.899 Other long term (current) drug therapy; Z88.1 Allergy status to other antibiotic agents; Z88.5 Allergy status to narcotic agent; Z88.8 Allergy status to other drugs, medicaments and biological substances
CPT/HCPCS: 74177; 80053; 81001; 83690; 85025; 85651; 86140; 87637; 96374-59; 99284; J2405; Q9967

== ENCOUNTER 2024-12-20 06:41 | Emergency (ER) | payer OTHER ==
[~2024-12-20] VITALS: Ht 167.6 cm; Wt 68.0 kg
[2024-12-20] MEDS ORDERED: Morphine Sulfate 4 MG/1 ML Injection IV ONE ×2 (07:20→09:25)
[2024-12-20] MEDS ORDERED: NS 1,000 ML BAG IR ONE (07:20)
[2024-12-20] MEDS ORDERED: Ondansetron HCl 2 MG / ML 2ML Vial IV ONE (07:20)
[2024-12-20] MEDS ORDERED: NS 1,000 ML IV ONE (07:25)
[2024-12-20 07:32] LABS: BASOPHILS ABSOLUTE AUTO 0.07 K/mm3 (0.00-0.23); BASOPHILS PERCENT AUTO 1 % (0-2); EOSINOPHILS ABSOLUTE AUTO 0.14 K/mm3 (0.00-0.68); EOSINOPHILS PERCENT AUTO 1 % (0-6); Hematocrit 45.2 % (33.0-51.0); Hemoglobin 15.1 g/dL (11.5-16.0); IMMATURE GRAN ABSOLUTE AUTO 0.03 K/mm3 (0.00-0.10); IMMATURE GRAN PERCENT AUTO 0 % (0-1); LYMPHOCYTES ABSOLUTE AUTO 3.25 K/mm3 (0.84-5.20); LYMPHOCYTES PERCENT AUTO 24 % (21-46); MONOCYTES ABSOLUTE AUTO 0.60 K/mm3 (0.16-1.47); MONOCYTES PERCENT AUTO 4 % (4-13); Mean Corpuscular HGB Conc 33.4 g/dL (31.5-36.5); Mean Corpuscular Volume 92 fL (80-100); NEUTROPHILS ABSOLUTE AUTO 9.74 K/mm3 (1.96-9.15); NEUTROPHILS PERCENT AUTO 71 % (41-73); NRBC ABSOLUTE 0.00 K/mm3 (0.00-0.02); NRBC Auto 0.0 /100 WBC (0.0-0.2); Platelet Count 318 K/mm3 (150-400); RDW Coefficient Variation 11.6 % (11.7-14.2); RDW Standard Deviation 39.2 fL (35.1-46.3)
[2024-12-20 07:59] LABS: Alanine Aminotransfer (ALT/SGP 25.0 U/L (12-78); Albumin, Blood 4.1 g/dL (3.4-5.0); Albumin/Globulin Ratio 1.3 (0.8-1.8); Anion Gap 7.0 mmol/L (3-11); Aspartate Aminotrans (AST/SGOT 18.0 U/L (12-37); Bilirubin, Total 0.3 mg/dL (0.1-1.0); Blood Urea Nitrogen 16.0 mg/dL (8-24); CO2, Blood 26.0 mmol/L (21-32); Calcium, Blood 9.9 mg/dL (8.5-10.1); Chloride, Blood 110.0 mmol/L (98-108); Creatinine, Blood 0.82 mg/dL (0.40-1.00); Globulin, Blood 3.2 g/dL (2.2-4.0); Glucose, Blood 131.0 mg/dL (70-99); Lactate Dehydrogenase (Ld),Bld 228.0 U/L (100-240); Potassium, Blood 4.4 mmol/L (3.5-5.5); Sodium, Blood 139.0 mmol/L (136-145); Total Protein, Blood 7.3 g/dL (6.4-8.2)
[2024-12-20 08:44] LABS: Bilirubin, Urine Neg (Neg); Color, Urine Yellow (P-Yellow); Glucose Qualitative, Urine Neg (Neg); Ketones, Urine Neg (Neg); Leukocyte Esterase, Urine Neg (Neg); Protein, Urine Neg (Neg); Source, Urine Clean Catch; Specific Gravity, Urine 1.015 (1.003-1.022); Urobilinogen, Urine NORM (Normal)
[2024-12-20 08:50] LABS: White Blood Cells, Urine 0-2 /hpf (0-5)
[2024-12-20] MEDS ORDERED: Ondansetron HCl 2 MG / ML 2ML Vial IV PRN (09:25)
[2024-12-20 10:36] VITALS: BP 138/100
[2024-12-20] MEDS ORDERED: ONDA4ODT MM (11:53)
[2024-12-20] MEDS ORDERED: PRED20 PO (11:53)
== END 2024-12-20 12:01 | disposition home or self-care (01) ==
LOC: ER 06:41
DX: K50.10 Crohn's disease of large intestine without complications (principal); Z53.29 Procedure and treatment not carried out because of patient's decision for other reasons; I48.91 Unspecified atrial fibrillation; Z87.891 Personal history of nicotine dependence; Z88.8 Allergy status to other drugs, medicaments and biological substances; Z79.899 Other long term (current) drug therapy
CPT/HCPCS: 74177; 80053; 81001; 83605; 83615; 83690; 85025; 96374-59; 96375; 96376; 99285-25; A9270; J2270; J2405; J2919; J7030; Q9967